=== PATIENT | female | born 2000 | race Two or more races ===

== ENCOUNTER 2023-10-29 06:58 | Emergency (ER) | payer BC, OTHER ==
[~2023-10-29] VITALS: Ht 157.5 cm; Wt 98.0 kg
[2023-10-29 07:44] VITALS: BP 126/56; PULSE 89; RESP 16; TEMP 98.8; O2SAT 96
== END 2023-10-29 08:03 | disposition home or self-care (01) ==
LOC: ER 06:58
DX: T16.1XXA Foreign body in right ear, initial encounter (principal); W44.8XXA Other foreign body entering into or through a natural orifice, initial encounter; Y93.89 Activity, other specified; Y92.89 Other specified places as the place of occurrence of the external cause; Y99.8 Other external cause status
CPT/HCPCS: 69200